=== PATIENT | male | born 1955 | race Caucasian/White ===

== ENCOUNTER 2017-12-20 18:53 | Inpatient (IN) | payer MEDICARE ==
--- NOTE | 2017-12-20 19:21 | ER Document Report ---
ED General <BRADLEY BRITO - Last Filed: 12/20/17 21:35> - General Mode of Arrival: Medic Information source: Patient <BETINA JUAREZ - Last Filed: 12/20/17 21:39> - General Chief Complaint: Suicidal Ideation Stated Complaint: SUICIDAL IDEATION Time Seen by Provider: 12/20/17 19:07 Notes: 62 y.o male with a PMHx of DM for which he takes Lantus and Metformin, HTN, HLD , CAD with stent placement a few years ago and a PSHx of LT rotator cuff surgery and appendectomy. Pt presents to the ED after his sister called the EMS for SI when she found him confused with empty bottles of Robitussin lying next to him. Pt reports trouble sleeping tonight which caused him to take the Robitussin but denies having trouble sleeping prior to tonight. Pt denies any triggers to his trouble sleeping. He denies trying to hurt himself but admits that he realizes that he could have hurt himself by taking the amount of cold and flu medications that he did. Pt denies any hx of HI and denies taking any blood thinners other than Aspirin daily. He reports taking medications for HTN and HLD. 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 He states Dr. Romo is his PCP. Pt is a poor historian, everything asked is answered with a yes or no without elaboration. Pt has no complaints at this time. (LARRYBETINA) - Related Data Allergies/Adverse Reactions: Tetanus Vaccines and Toxoid Allergy (Intermediate, Verified 12/20/17 21:21) Past Medical History - General Information source: Patient - Social History Smoking Status: Unknown if Ever Smoked Cigarette use (# per day): No Frequency of alcohol use: None Occupation: retired Lives with: Alone - Resident of [place], [place]. - Past Medical History Cardiac Medical History: Reports: Hx Coronary Artery Disease - with stent placement, Hx Hypercholesterolemia, Hx Hypertension Endocrine Medical History: Reports: Hx Diabetes Mellitus Type 2 Renal/ Medical History: Denies: Hx Peritoneal Dialysis <LARRYBETINA - Last Filed: 12/20/17 21:39> Review of Systems - Review of Systems Constitutional: No symptoms reported EENT: No symptoms reported Cardiovascular: No symptoms reported Respiratory: No symptoms reported Gastrointestinal: No symptoms reported Genitourinary: No symptoms reported Male Genitourinary: No symptoms reported Musculoskeletal: No symptoms reported Skin: No symptoms reported Hematologic/Lymphatic: No symptoms reported Neurological/Psychological: See HPI, Confusion, Suicidal ideation, Other - trouble sleeping <BETINA JUAREZ - Last Filed: 12/20/17 21:39> Physical Exam <DARYLYAMILETH CastañedaBRADLEY - Last Filed: 12/20/17 21:35> <BETINA JUAREZ - Last Filed: 12/20/17 21:39> - Vital signs Vitals: Resp Pulse Ox 16 97 12/20/17 19:35 12/20/17 19:35 - Notes Notes: Physical Exam: General: Flat affect, everything asked is answered with a yes or no without elaboration. Strong ketone odor on breath. HEENT: Normocephalic. Atraumatic. PERRL. Extraocular movements intact. Oropharynx clear. Mucus membranes dry. Neck: Supple. Non-tender. Chin on chest does not cause a headache. No rigidity. Respiratory: No respiratory distress. Clear and equal breath sounds bilaterally. Cardiovascular: Regular rate and rhythm. Abdominal: Obese. Non-tender, soft. No distension. Normal Bowel Sounds. Back: Non-tender. No deformity or step off. Extremities: Moves all four extremities. No peripheral edema. Upper extremities: Normal inspection. Normal ROM. Lower extremities: Normal inspection. No edema. Normal ROM. Skin: Pale. chronic skin changes to bilateral lower extremities just above the ankles. Neurological: Flat affect, everything asked is answered with a yes or no without elaboration. (BETINA UJAREZ) Course - Laboratory Result Diagrams: 12/20/17 19:42 12/20/17 19:42 - EKG Interpretation by Sd EKG shows normal: Sinus rhythm, Michie, Intervals, QRS Complexes, ST-T Waves Rate: Normal - 72 Rhythm: NSR Michie/QRS: LPHB/LPFB - Consults Dr. Riley Time consulted: 21:20 Consulted provider: will come to ER - Telemetry admit <BRADLEY BRITO - Last Filed: 12/20/17 21:35> - Laboratory Result Diagrams: 12/20/17 19:42 12/20/17 19:42 <BETINA JUAREZ - Last Filed: 12/20/17 21:39> - Re-evaluation Re-evalutation: 12/20/17 21:01 The patient's sister arrived and confirms that he has been depressed and responding in one-word answers for several days. She did find him with several cough and cold preparation bottles around him today. She brought 2 large bottles of cough and cold preparation that includes acetaminophen and eczema for them, and a bottle of Robitussin-DM. The patient's Tylenol level was undetectable, and urine drug screen was negative for PCP. This makes it very unlikely that the Robitussin he reportedly was taking had dextromethorphan minute, and unlikely that he had significant acetaminophen ingestion recently. His BUN is 65 creatinine is 2.27, we have no comparison lab work. His serum CO2 is 17 consistent with his strong ketone odor on his breath. His blood sugar was 123 with an A1c of 9.7. I do not know if this is starvation ketosis and dehydration, or if his sugars have been out of control and he recently administered excessive insulin. He does seem a little encephalopathic at this time. (BRADLEY BRITO) - Vital Signs Vital signs: Temp Pulse Resp BP Pulse Ox 16 134/83 H 99 12/20/17 21:01 12/20/17 21:01 12/20/17 21:01 - Laboratory Laboratory results interpreted by me: 12/20/17 12/20/17 12/20/17 19:42 19:42 19:42 WBC 12.2 H RDW 14.4 H Potassium 5.4 H Carbon Dioxide 17 L Anion Gap 26 H BUN 65 H Creatinine 2.27 H Est GFR ( Amer) 35 L Est GFR (Non-Af Amer) 29 L Glucose 123 H Hemoglobin A1c % 9.7 H Calcium 10.5 H Magnesium 2.5 H Direct Bilirubin 0.6 H Total Protein 9.0 H Urine Protein Urine Ketones Urine Urobilinogen Salicylates < 1.0 L Acetaminophen < 10 L 12/20/17 19:52 WBC RDW Potassium Carbon Dioxide Anion Gap BUN Creatinine Est GFR ( Amer) Est GFR (Non-Af Amer) Glucose Hemoglobin A1c % Calcium Magnesium Direct Bilirubin Total Protein Urine Protein 30 H Urine Ketones 20 H Urine Urobilinogen 2.0 H Salicylates Acetaminophen Critical Care Note - Critical Care Note Total time excluding time spent on procedures (mins): 30 <BRADLEY BRITO - Last Filed: 12/20/17 21:35> Discharge - Discharge Admitting Provider: Hospitalist Unit Admitted: Telemetry <BRADLEY BRITO - Last Filed: 12/20/17 21:35> <BETINA JUAREZ - Last Filed: 12/20/17 21:39> - Discharge Clinical Impression: Suicidal ideation, Dehydration, Acute kidney injury, Metabolic acidosis, Ketoacidosis, Encephalopathy Depression Qualifiers: Depression Type: unspecified Qualified Code(s): F32.9 - Major depressive disorder, single episode, unspecified Diabetes Qualifiers: Diabetes mellitus type: type 2 Diabetes mellitus rodent exterminator insulin use: with rodent exterminator use Diabetes mellitus complication status: with unspecified complications Qualified Code(s): E11.8 - Type 2 diabetes mellitus with unspecified complications Condition: Stable Disposition: ADMITTED INPATIENT Referrals: ONEYDA ROMO MD [Primary Care Provider] - Follow up as needed Scribe Attestation: 12/20/17 21:30 I personally performed the services described in the documentation, reviewed and edited the documentation which was dictated to the scribe in my presence, and it accurately records my words and actions. (BRADLEY BRITO) Scribe Documentation - Scribe Written by Ryan:: Ryan Osborn 12/20/171911 acting as scribe for :: Daryl <BETINA JUAREZ - Last Filed: 12/20/17 21:39>
[2017-12-20 19:57] LABS: ABSOLUTE BASOPHILS # (AUTO) 0.1 10^3/uL (0.0-0.2); ABSOLUTE EOSINOPHILS # (AUTO) 0.3 10^3/uL (0.0-0.6); ABSOLUTE LYMPHOCYTES (AUTO) 3.1 10^3/uL (0.5-4.7); ABSOLUTE MONOCYTES (AUTO) 1.1 10^3/uL (0.1-1.4); ABSOLUTE NEUT (AUTO) 7.6 10^3/uL (1.7-8.2); BASOPHILS % (AUTO) 0.8 % (0-2); EOSINOPHILS % (AUTO) 2.7 % (0-6); HEMATOCRIT 45.5 % (37.9-51.0); LYMPHOCYTES % (AUTO) 25.4 % (13-45); MEAN CORPUSCULAR HEMOGLOBIN 30.3 pg (27.0-33.4); MEAN CORPUSCULAR VOLUME 92 fl (80-97); MONOCYTES % (AUTO) 9.2 % (3-13); PLATELET COUNT 420 10^3/uL (150-450); RED BLOOD COUNT 4.96 10^6/uL (4.35-5.55); RED CELL DISTRIBUTION WIDTH 14.4 % (11.5-14.0); SEGMENTED NEUTROPHILS % (AUTO) 61.9 % (42-78); TOTAL CELLS COUNTED % (AUTO) 100 %; WHITE BLOOD COUNT 12.2 10^3/uL (4.0-10.5)
[2017-12-20 19:59] LABS: INTERNATIONAL RATION (INR) 1.01; PROTHROMBIN TIME 13.8 SEC (11.4-15.4)
[2017-12-20 20:04] LABS: APPEARANCE,URINE SLIGHTLY-CLOUDY; BILIRUBIN,URINE NEGATIVE (NEGATIVE); COLOR,URINE YELLOW; GLUCOSE, URINE NEGATIVE (NEGATIVE); KETONES,URINE 20 mg/dL (NEGATIVE); LEUKOCYTE ESTERASE,URINE NEGATIVE (NEGATIVE); NITRITE,URINE NEGATIVE (NEGATIVE); PROTEIN,URINE 30 mg/dL (NEGATIVE); URINE SPECIFIC GRAVITY 1.014
[2017-12-20 20:19] LABS: URINE AMPHETAMINES SCREEN NEGATIVE; URINE BARBITURATES SCREEN NEGATIVE; URINE BENZODIAZEPINES SCREEN NEGATIVE; URINE COCAINE SCREEN NEGATIVE; URINE MARIJUANA (THC) SCREEN NEGATIVE; URINE METHADONE SCREEN NEGATIVE; URINE PHENCYCLIDINE SCREEN NEGATIVE
[2017-12-20 20:38] LABS: ALANINE AMINOTRANSFERASE 40 U/L (21-72); ALKALINE PHOSPHATASE 106 U/L (38-126); ASPARTATE AMINO TRANSFERASE 29 U/L (17-59); BILIRUBIN,DIRECT 0.6 mg/dL (0.0-0.4); BILIRUBIN,TOTAL 0.6 mg/dL (0.2-1.3); BLOOD UREA NITROGEN 65 mg/dL (7-20); CALCIUM 10.5 mg/dL (8.4-10.2); CREATINE KINASE 94 U/L (55-170); GLUCOSE 123 mg/dL (75-110); POTASSIUM 5.4 mmol/L (3.6-5.0)
[2017-12-20 20:39] LABS: ACETAMINOPHEN < 10 ug/mL (10-30); ALCOHOL < 10 mg/dL (NONE DETECTED); SALICYLATE < 1.0 mg/dL (2.0-20.0)
[2017-12-20 20:45] LABS: ANION GAP 26 (5-19); CARBON DIOXIDE 17 mmol/L (22-30); CHLORIDE 101 mmol/L (98-107); SODIUM 143.9 mmol/L (137-145)
[2017-12-20] MEDS ORDERED: NORMAL SALINE 1000 ML 1,000 ML IV ONE (20:47)
[2017-12-20] MEDS ORDERED: MAG HYDROX/AL HYDROX/SIMETH SUSP 30 ML UDCUP PO PRN (21:23)
[2017-12-20] MEDS ORDERED: ONDANSETRON HCL INJ/PF 4 MG/2 ML SDV IV PRN (21:23)
[2017-12-20] MEDS ORDERED: DEXTROSE 50%-WATER 25 GM/50 ML DISP.SYRIN IV PRN ×2 (21:23)
[2017-12-20] MEDS ORDERED: INSULIN LISPRO 100 UNIT/ML 3 ML VIAL SUBCUT PRN (21:23)
[2017-12-20] MEDS ORDERED: DEXTROSE 40% GEL 15 GM TUBE PO PRN ×2 (21:23)
[2017-12-20] MEDS ORDERED: IPRATROPIUM/ALBUTEROL 0.5-2.5 MG/3 ML AMPUL NEB PRN (21:23)
[2017-12-20] MEDS ORDERED: GLUCAGON,HUMAN RECOMB 1 MG INJ IM PRN (21:23)
[2017-12-20] MEDS ORDERED: ACETAMINOPHEN 325 MG TABLET PO PRN (21:23)
--- NOTE | 2017-12-20 21:40 | RADIOLOGY REPORT (SQ) ---
EXAM DESCRIPTION: CHEST SINGLE VIEW COMPLETED DATE/TIME: 12/20/2017 9:31 pm REASON FOR STUDY: Overdose, dehydration, coronary artery disease COMPARISON: None. EXAM PARAMETERS: NUMBER OF VIEWS: One view. TECHNIQUE: Single frontal radiographic view of the chest acquired. RADIATION DOSE: NA LIMITATIONS: None. FINDINGS: LUNGS AND PLEURA: There is increased opacification in the left base. MEDIASTINUM AND HILAR STRUCTURES: No masses. Contour normal. HEART AND VASCULAR STRUCTURES: Heart normal in size. Normal vasculature. BONES: No acute findings. HARDWARE: None in the chest. OTHER: No other significant finding. IMPRESSION: Opacification the left base laterally. The pleural effusion cannot be excluded. Consol idation cannot be excluded. Mass cannot be excluded. TECHNICAL DOCUMENTATION: JOB ID: [id number] [employer]- All Rights Reserved Reading location - IP/workstation name: [email or web address]
[2017-12-20] MEDS: NORMAL SALINE 1000 ML 1,000 ML IV PRN (21:50)
[2017-12-20] MEDS: HEPARIN SOD (PORCINE) 5,000 UNIT/ML 1 ML SYRINGE SUBCUT SCH (23:26)
[2017-12-20] MEDS: IPRATROPIUM/ALBUTEROL 0.5-2.5 MG/3 ML AMPUL NEB SCH (23:36)
[2017-12-21 00:30] LABS: BLOOD UREA NITROGEN 61 mg/dL (7-20); CALCIUM 9.8 mg/dL (8.4-10.2); GLUCOSE 108 mg/dL (75-110); POTASSIUM 5.2 mmol/L (3.6-5.0)
[2017-12-21 00:35] LABS: CARBON DIOXIDE 17 mmol/L (22-30); CHLORIDE 105 mmol/L (98-107); SODIUM 144.9 mmol/L (137-145)
[2017-12-21 00:41] LABS: ANION GAP 23 (5-19)
[2017-12-21] MEDS: NORMAL SALINE 1000 ML 1,000 ML IV PRN ×2 (03:45→09:18)
--- NOTE | 2017-12-21 05:51 | PDOC H&P ---
History of Present Illness Admission Date/PCP: 12/20/17 21:38 ONEYDA VARELA MD Patient complains of: Confusion History of Present Illness: KEZIA IVERSON is a 62 year old male with a history of depression, diabetes, hypertension, dyslipidemia, coronary artery disease with stenting. He presents to the emergency room after his sister discovers him confused with empty bottles of Robitussin and NyQuil. Patient complains of insomnia denies suicidal ideation, confusion, weakness or difficulty with speech. Patient's sister describes confabulation regarding compliance of lifestyle and home medication. Patient denies history of suicide attempt or current homicidal ideation. Patient appears upset with his sister. In the emergency room he is found to have hyperkalemia 5.4, metabolic acidosis and acute renal failure with prerenal azotemia and a negative urine tox screen. He is IVCed and referred to the hospitalist for admission. Past Medical History Cardiac Medical History: Reports: Coronary Artery Disease - with stent placement , Hyperlipidema, Hypertension Pulmonary Medical History: Reports: None EENT Medical History: Reports: None Neurological Medical History: Reports: None Endocrine Medical History: Reports: Diabetes Mellitus Type 2 Renal/ Medical History: Reports: None Malignancy Medical History: Reports: None GI Medical History: Reports: None Musculoskeltal Medical History: Reports: None Skin Medical History: Reports: None Psychiatric Medical History: Reports: Depression Traumatic Medical History: Reports: None Hematology: Reports: None Infectious Medical History: Reports: None Past Surgical History Past Surgical History: Reports: Appendectomy, Coronary Stent, Orthopedic Surgery - L shoulder Social History Information Source: Patient Lives with: Alone - Resident of [place], [place]. Smoking Status: Unknown if Ever Smoked Frequency of Alcohol Use: None Hx Recreational Drug Use: No Drugs: None Hx Prescription Drug Abuse: No - Advance Directive Resuscitation Status: Full Code Family History Family History: Hypertension Parental Family History Reviewed: Yes Children Family History Reviewed: Yes Sibling(s) Family History Reviewed.: Yes Medication/Allergy Allergies/Adverse Reactions: Tetanus Vaccines and Toxoid Allergy (Intermediate, Verified 12/20/17 21:21) Review of Systems ROS unobtainable: Due to mental status - Patient felt unreliable historian given contradictory lab findings and his sisters account of history Physical Exam Vital Signs: Temp Pulse Resp BP Pulse Ox 97.9 F 68 18 123/69 100 12/21/17 03:13 12/21/17 03:13 12/21/17 03:13 12/21/17 03:13 12/21/17 03:13 Intake & Output 12/19/17 12/20/17 12/21/17 11:59 11:59 11:59 Weight 106.5 kg General appearance: PRESENT: no acute distress, cooperative, disheveled, mild distress Head exam: PRESENT: atraumatic, normocephalic Eye exam: PRESENT: conjunctiva pink, EOMI, PERRLA. ABSENT: scleral icterus Ear exam: PRESENT: normal external ear exam Mouth exam: PRESENT: dry mucosa, neck supple. ABSENT: laceration, moist Neck exam: ABSENT: carotid bruit, JVD, lymphadenopathy, thyromegaly Respiratory exam: PRESENT: clear to auscultation marco. ABSENT: rales, rhonchi, wheezes Cardiovascular exam: PRESENT: RRR. ABSENT: diastolic murmur, rubs, systolic murmur Pulses: PRESENT: normal dorsalis pedis pul Vascular exam: PRESENT: normal capillary refill GI/Abdominal exam: PRESENT: normal bowel sounds, soft. ABSENT: distended, guarding, mass, organolmegaly, rebound, tenderness Rectal exam: PRESENT: deferred Extremities exam: PRESENT: full ROM. ABSENT: calf tenderness, clubbing, pedal edema Neurological exam: PRESENT: alert, awake, oriented to person, oriented to place , oriented to time, oriented to situation, CN II-XII grossly intact. ABSENT: motor sensory deficit Psychiatric exam: PRESENT: flat affect, unusual affect Skin exam: PRESENT: dry, intact, warm. ABSENT: cyanosis, rash Results Laboratory Results: 12/21/17 00:05 12/21/17 00:05 Sodium 144.9 Potassium 5.2 H Chloride 105 Carbon Dioxide 17 L Anion Gap 23 H BUN 61 H Creatinine 1.99 H Est GFR ( Amer) 41 L Est GFR (Non-Af Amer) 34 L Glucose 108 Calcium 9.8 Impressions: Chest X-Ray 12/20/17 21:04 IMPRESSION: Opacification the left base laterally. The pleural effusion cannot be excluded. Consolidation cannot be excluded. Mass cannot be excluded. Assessment & Plan - Diagnosis (1) Acute kidney injury Is this a current diagnosis for this admission?: Yes Plan: Likely secondary to dehydration and prerenal azotemia, IV fluid challenge follow -up chemistry (2) Dehydration Is this a current diagnosis for this admission?: Yes Plan: IV fluid challenge, encourage p.o. intake, follow-up chemistry (3) Depression Qualifiers: Depression Type: unspecified Qualified Code(s): F32.9 - Major depressive disorder, single episode, unspecified Is this a current diagnosis for this admission?: Yes Plan: Unclear history, IVCed obtain mental health consult, supportive care with suicide precaution (4) Diabetes Qualifiers: Diabetes mellitus type: type 2 Diabetes mellitus retirement insulin use: with terminal block assembler use Diabetes mellitus complication status: with unspecified complications Qualified Code(s): E11.8 - Type 2 diabetes mellitus with unspecified complications; Z79.4 - correction (current) use of insulin; Z79.4 - terminal operator (current) use of insulin; Z79.4 - terminal operator (current) use of insulin; Z79.4 - correction (current) use of insulin Is this a current diagnosis for this admission?: Yes Plan: Obtain medication reconciliation, avoid metformin, Humalog sliding scale (5) Metabolic acidosis Is this a current diagnosis for this admission?: Yes Plan: Secondary to starvation versus metformin, IV fluid challenge, diabetic diet, follow-up chemistry. - Time Time Spent: 50 to 70 Minutes - Inpatient Certification Medical Necessity: Need Close Monitoring Due to Risk of Patient Decompensation
[2017-12-21 06:15] LABS: ABSOLUTE EOSINOPHILS # (AUTO) 0.2 10^3/uL (0.0-0.6); ABSOLUTE LYMPHOCYTES (AUTO) 2.2 10^3/uL (0.5-4.7); ABSOLUTE MONOCYTES (AUTO) 0.9 10^3/uL (0.1-1.4); ABSOLUTE NEUT (AUTO) 6.1 10^3/uL (1.7-8.2); BASOPHILS % (AUTO) 0.4 % (0-2); EOSINOPHILS % (AUTO) 2.6 % (0-6); HEMATOCRIT 42.5 % (37.9-51.0); HEMOGLOBIN 14.1 g/dL (13.5-17.0); LYMPHOCYTES % (AUTO) 23.4 % (13-45); MEAN CORPUSCULAR HEMOGLOBIN 30.5 pg (27.0-33.4); MEAN CORPUSCULAR HGB CONC 33.3 g/dL (32.0-36.0); MEAN CORPUSCULAR VOLUME 92 fl (80-97); MONOCYTES % (AUTO) 9.1 % (3-13); PLATELET COUNT 337 10^3/uL (150-450); RED BLOOD COUNT 4.64 10^6/uL (4.35-5.55); RED CELL DISTRIBUTION WIDTH 14.3 % (11.5-14.0); SEGMENTED NEUTROPHILS % (AUTO) 64.5 % (42-78); TOTAL CELLS COUNTED % (AUTO) 100 %; WHITE BLOOD COUNT 9.5 10^3/uL (4.0-10.5)
[2017-12-21 06:27] LABS: BLOOD UREA NITROGEN 58 mg/dL (7-20); CALCIUM 10.1 mg/dL (8.4-10.2); CARBON DIOXIDE 19 mmol/L (22-30); GLUCOSE 123 mg/dL (75-110)
[2017-12-21 06:32] LABS: CHLORIDE 107 mmol/L (98-107); SODIUM 150.6 mmol/L (137-145)
[2017-12-21 06:38] LABS: ANION GAP 25 (5-19)
[2017-12-21 06:40] LABS: POTASSIUM 6.1 mmol/L (3.6-5.0)
--- NOTE | 2017-12-21 07:45 | EKG REPORT ---
SEVERITY:- ABNORMAL ECG - SINUS RHYTHM LEFT POSTERIOR FASCICULAR BLOCK : Confirmed by: Triston Tomlinson MD 21-Dec-2017 07:44:44
[2017-12-21] MEDS: IPRATROPIUM/ALBUTEROL 0.5-2.5 MG/3 ML AMPUL NEB SCH (08:37)
[2017-12-21] MEDS: DOCUSATE SODIUM 100 MG CAPSULE PO SCH ×2 (09:18→17:24)
[2017-12-21] MEDS: HEPARIN SOD (PORCINE) 5,000 UNIT/ML 1 ML SYRINGE SUBCUT SCH ×3 (09:18→21:19)
[2017-12-21] MEDS ORDERED: DEXTROSE 50%-WATER 25 GM/50 ML DISP.SYRIN IV ONE (09:35)
[2017-12-21] MEDS ORDERED: INSULIN REG, HUMAN 100 UNIT/ML 3 ML VIAL (PYX) IV ONE (09:36)
[2017-12-21] MEDS ORDERED: CALCIUM CHLORIDE 10% PF/INJ 1000 MG/10 ML SDV IV STA (09:38)
[2017-12-21] MEDS ORDERED: NORMAL SALINE 1000 ML 1,000 ML IV PRN (09:40)
[2017-12-21 10:09] LABS: ALANINE AMINOTRANSFERASE 37 U/L (21-72); ALBUMIN 4.5 g/dL (3.5-5.0); ALKALINE PHOSPHATASE 92 U/L (38-126); ASPARTATE AMINO TRANSFERASE 23 U/L (17-59); BILIRUBIN,DIRECT 0.5 mg/dL (0.0-0.4); BILIRUBIN,TOTAL 0.5 mg/dL (0.2-1.3); TOTAL PROTEIN 7.7 g/dL (6.3-8.2)
[2017-12-21 10:11] LABS: ACETAMINOPHEN < 10 ug/mL (10-30); SALICYLATE < 1.0 mg/dL (2.0-20.0)
[2017-12-21] MEDS ORDERED: CALCIUM GLUCONATE 2,222 MG in DEXTROSE 5%-WATER 100 ML IV ONE (10:30)
[2017-12-21 10:43] LABS: INTERNATIONAL RATION (INR) 1.03
[2017-12-21] MEDS ORDERED: DEXTROSE 5%-1/2 NORMAL SALINE 1,000 ML IV PRN (10:47)
[2017-12-21] MEDS: ALBUTEROL SULFATE 0.083% NEB 2.5 MG/3 ML AMPUL NEB SCH ×4 (12:14→23:22)
[2017-12-21 13:15] LABS: ARTERIAL BLOOD BASE EXCESS -8.2 mmol/L; ARTERIAL BLOOD FIO2 ROOM AIR; ARTERIAL BLOOD HCO3 17.5 mmol/L (20-26); ARTERIAL BLOOD PCO2 36.7 mmHg (35-45); ARTERIAL BLOOD PO2 88.9 mmHg (80-100); ARTERIAL BLOOD TOTAL CO2 18.6 mmol/L (23-27)
[2017-12-21 13:18] LABS: BLOOD UREA NITROGEN 46 mg/dL (7-20); CALCIUM 10.4 mg/dL (8.4-10.2); CARBON DIOXIDE 19 mmol/L (22-30); CHLORIDE 104 mmol/L (98-107); GLUCOSE 191 mg/dL (75-110); SODIUM 145.7 mmol/L (137-145)
[2017-12-21 13:28] LABS: ANION GAP 22 (5-19)
[2017-12-21] MEDS ORDERED: GLUCAGON,HUMAN RECOMB 1 MG INJ IM PRN (13:42)
[2017-12-21] MEDS ORDERED: DEXTROSE 50%-WATER 25 GM/50 ML DISP.SYRIN IV PRN ×2 (13:42)
[2017-12-21] MEDS ORDERED: DEXTROSE 40% GEL 15 GM TUBE PO PRN ×2 (13:42)
--- NOTE | 2017-12-21 13:57 | PDOC PROGRESS REPORT ---
Subjective Progress Note for:: 12/21/17 Reason For Visit: ARF/MET ACIDOSIS/SUICIDE IDEATION Physical Exam Vital Signs: Temp Pulse Resp BP Pulse Ox 97.7 F 70 14 136/76 H 100 12/21/17 07:58 12/21/17 07:58 12/21/17 07:58 12/21/17 07:58 12/21/17 07:58 Intake & Output 12/20/17 12/21/17 12/22/17 06:59 06:59 06:59 Intake Total 872 Balance 872 Weight 106.3 kg Results Laboratory Results: 12/21/17 05:54 12/21/17 05:54 12/21/17 12/21/17 12/21/17 00:05 05:54 05:54 WBC 9.5 RBC 4.64 Hgb 14.1 Hct 42.5 MCV 92 MCH 30.5 MCHC 33.3 RDW 14.3 H Plt Count 337 Seg Neutrophils % 64.5 Lymphocytes % 23.4 Monocytes % 9.1 Eosinophils % 2.6 Basophils % 0.4 Absolute Neutrophils 6.1 Absolute Lymphocytes 2.2 Absolute Monocytes 0.9 Absolute Eosinophils 0.2 Absolute Basophils 0.0 Sodium 144.9 150.6 H Potassium 5.2 H 6.1 H* Chloride 105 107 Carbon Dioxide 17 L 19 L Anion Gap 23 H 25 H BUN 61 H 58 H Creatinine 1.99 H 1.88 H Est GFR ( Amer) 41 L 44 L Est GFR (Non-Af Amer) 34 L 36 L Glucose 108 123 H Calcium 9.8 10.1 Impressions: Chest X-Ray 12/20/17 21:04 IMPRESSION: Opacification the left base laterally. The pleural effusion cannot be excluded. Consolidation cannot be excluded. Mass cannot be excluded. Assessment & Plan - Diagnosis (1) DKA (diabetic ketoacidoses) Qualifiers: Diabetes mellitus type: type 2 Diabetes mellitus complication detail: without coma Qualified Code(s): E11.10 - Type 2 diabetes mellitus with ketoacidosis without coma Is this a current diagnosis for this admission?: Yes Plan: Continue hydration, start Lantus, pre-meal Humalog and continue Humalog sliding scale before meals and at bedtime (2) Acute kidney injury Is this a current diagnosis for this admission?: Yes (3) Hyperkalemia Is this a current diagnosis for this admission?: Yes Plan: BMP still pending and we will follow-up to see if any further intervention (4) Metabolic acidosis Is this a current diagnosis for this admission?: Yes Plan: Will abuse to be due to ketoacidosis. To order beta hydroxy butyrate (5) Suicidal ideation Is this a current diagnosis for this admission?: Yes Plan: Patient IVCed. Psychiatry consult pending consult (6) Depression Qualifiers: Depression Type: unspecified Qualified Code(s): F32.9 - Major depressive disorder, single episode, unspecified Is this a current diagnosis for this admission?: Yes Plan: Restart Lopressor (7) HTN (hypertension) Qualifiers: Hypertension type: essential hypertension Qualified Code(s): I10 - Essential (primary) hypertension Is this a current diagnosis for this admission?: Yes Plan: Start Norvasc. She is diabetic will benefit from lisinopril but not at the present time - Time Time Spent with patient: 15-24 minutes Medications reviewed and adjusted accordingly: Yes Anticipated discharge: Other - Undetermined at this time - Inpatient Certification Based on my medical assessment, after consideration of the patient's comorbidities, presenting symptoms, or acuity I expect that the services needed warrant INPATIENT care.: Yes I certify that my determination is in accordance with my understanding of Medicare's requirements for reasonable and necessary INPATIENT services [42 CFR 412.3e].: Yes Medical Necessity: Significant Comorbidiites Make Outpatient Treatment Too Risky , Need Close Monitoring Due to Risk of Patient Decompensation, Need For IV Fluids, Need For Continuous Telemetry Monitoring
[2017-12-21 13:59] LABS: POTASSIUM 5.1 mmol/L (3.6-5.0)
[2017-12-21] MEDS: 1/2 NORMAL SALINE 1,000 ML IV PRN (14:44)
[2017-12-21] MEDS: AMLODIPINE BESYLATE 5 MG TABLET PO SCH (14:44)
--- NOTE | 2017-12-21 16:49 | Physician Advisory Note ---
Physician Advisor ProgressNote .: Pursuant to the plan for [facility], I have reviewed the medical record for this patient. Physician Advisor Statement: Please consider documenting, if you agree: 1. "Acute hypernatremia, suspect due to " [intravascular volume depletion from ...?] Thanks! CK
[2017-12-21] MEDS: INSULIN LISPRO 100 UNIT/ML 3 ML VIAL SUBCUT SCH (17:23)
[2017-12-21] MEDS: INSULIN LISPRO 100 UNIT/ML 3 ML VIAL SUBCUT PRN (17:24)
[2017-12-21 19:01] LABS: BLOOD UREA NITROGEN 47 mg/dL (7-20); CALCIUM 10.1 mg/dL (8.4-10.2); GLUCOSE 156 mg/dL (75-110); POTASSIUM 5.6 mmol/L (3.6-5.0)
[2017-12-21 19:10] LABS: ANION GAP 22 (5-19); CARBON DIOXIDE 19 mmol/L (22-30); CHLORIDE 103 mmol/L (98-107); SODIUM 144.2 mmol/L (137-145)
[2017-12-21] MEDS ORDERED: INSULIN GLARGINE,HUM.REC.ANLOG 300 UNIT/3 ML INSULN.PEN SUBCUT SCH (22:00)
[2017-12-21] MEDS: INSULIN GLARGINE,HUM.REC.ANLOG 300 UNIT/3 ML INSULN.PEN SUBCUT SCH (23:40)
[2017-12-22] MEDS: INSULIN LISPRO 100 UNIT/ML 3 ML VIAL SUBCUT PRN ×4 (00:01→17:41)
[2017-12-22] MEDS: 1/2 NORMAL SALINE 1,000 ML IV PRN (00:36)
[2017-12-22] MEDS: ALBUTEROL SULFATE 0.083% NEB 2.5 MG/3 ML AMPUL NEB SCH ×2 (03:03→08:09)
[2017-12-22 06:41] LABS: ABSOLUTE EOSINOPHILS # (AUTO) 0.3 10^3/uL (0.0-0.6); ABSOLUTE LYMPHOCYTES (AUTO) 2.2 10^3/uL (0.5-4.7); ABSOLUTE MONOCYTES (AUTO) 0.9 10^3/uL (0.1-1.4); ABSOLUTE NEUT (AUTO) 4.7 10^3/uL (1.7-8.2); BASOPHILS % (AUTO) 0.5 % (0-2); EOSINOPHILS % (AUTO) 3.6 % (0-6); HEMATOCRIT 38.2 % (37.9-51.0); HEMOGLOBIN 12.6 g/dL (13.5-17.0); LYMPHOCYTES % (AUTO) 27.3 % (13-45); MEAN CORPUSCULAR HEMOGLOBIN 29.6 pg (27.0-33.4); MEAN CORPUSCULAR HGB CONC 32.9 g/dL (32.0-36.0); MEAN CORPUSCULAR VOLUME 90 fl (80-97); MONOCYTES % (AUTO) 11.2 % (3-13); PLATELET COUNT 292 10^3/uL (150-450); RED BLOOD COUNT 4.25 10^6/uL (4.35-5.55); RED CELL DISTRIBUTION WIDTH 14.3 % (11.5-14.0); SEGMENTED NEUTROPHILS % (AUTO) 57.4 % (42-78); TOTAL CELLS COUNTED % (AUTO) 100 %; WHITE BLOOD COUNT 8.2 10^3/uL (4.0-10.5)
[2017-12-22] MEDS: INSULIN LISPRO 100 UNIT/ML 3 ML VIAL SUBCUT SCH ×3 (07:51→17:41)
[2017-12-22] MEDS: HEPARIN SOD (PORCINE) 5,000 UNIT/ML 1 ML SYRINGE SUBCUT SCH ×3 (07:51→22:10)
[2017-12-22 09:16] LABS: ANION GAP 17 (5-19); BLOOD UREA NITROGEN 39 mg/dL (7-20); CALCIUM 9.8 mg/dL (8.4-10.2); CARBON DIOXIDE 20 mmol/L (22-30); CHLORIDE 106 mmol/L (98-107); GLUCOSE 187 mg/dL (75-110); SODIUM 143.2 mmol/L (137-145)
[2017-12-22] MEDS ORDERED: IPRATROPIUM/ALBUTEROL 0.5-2.5 MG/3 ML AMPUL NEB PRN (09:21)
[2017-12-22 09:25] LABS: POTASSIUM 4.5 mmol/L (3.6-5.0)
[2017-12-22] MEDS: LANSOPRAZOLE 30 MG TAB.RAP.DR PO SCH (09:45)
[2017-12-22] MEDS: CITALOPRAM HYDROBROMIDE 20 MG TABLET PO SCH (09:45)
[2017-12-22] MEDS: DOCUSATE SODIUM 100 MG CAPSULE PO SCH ×2 (09:45→17:41)
[2017-12-22] MEDS: INSULIN GLARGINE,HUM.REC.ANLOG 300 UNIT/3 ML INSULN.PEN SUBCUT SCH ×2 (09:45→22:12)
[2017-12-22] MEDS ORDERED: ALBUTEROL SULFATE 0.083% NEB 2.5 MG/3 ML AMPUL NEB PRN (10:00)
[2017-12-22] MEDS: AMLODIPINE BESYLATE 5 MG TABLET PO SCH (13:22)
[2017-12-23] MEDS: HEPARIN SOD (PORCINE) 5,000 UNIT/ML 1 ML SYRINGE SUBCUT SCH (05:21)
[2017-12-23 07:14] LABS: ANION GAP 15 (5-19); BLOOD UREA NITROGEN 25 mg/dL (7-20); CALCIUM 10.1 mg/dL (8.4-10.2); CARBON DIOXIDE 26 mmol/L (22-30); CHLORIDE 106 mmol/L (98-107); GLUCOSE 123 mg/dL (75-110); PHOSPHORUS 3.5 mg/dL (2.5-4.5); POTASSIUM 4.3 mmol/L (3.6-5.0); SODIUM 146.7 mmol/L (137-145)
--- NOTE | 2017-12-23 07:26 | PDOC PROGRESS REPORT ---
Subjective Progress Note for:: 12/22/17 Subjective:: 62-year-old gentleman with past medical history of Insulin-dependent diabetes Hypertension Hyperlipidemia Depression Coronary artery disease with stenting. He presented to the emergency room on December 20 after his sister discovered him confused with empty bottles of Robitussin and NyQuil. There was some concern for possible suicide attempt, and he was involuntarily committed. In the emergency room he was found to have hyperkalemia with a potassium of 5.4 , metabolic acidosis and acute renal failure with prerenal azotemia. Urine tox screen was negative. Tylenol and salicylate level were negative. Reason For Visit: ARF/MET ACIDOSIS/SUICIDE IDEATION Physical Exam Vital Signs: Temp Pulse Resp BP Pulse Ox 98.1 F 66 20 146/77 H 97 12/23/17 03:25 12/23/17 03:25 12/23/17 03:25 12/23/17 03:25 12/23/17 03:25 Intake & Output 12/22/17 12/23/17 12/24/17 06:59 06:59 06:59 Intake Total 3900 1325 Output Total 950 3200 Balance 2950 -1875 Weight 106.6 kg 105.6 kg General appearance: PRESENT: no acute distress Head exam: PRESENT: normocephalic Mouth exam: PRESENT: moist Neck exam: ABSENT: tracheal deviation Respiratory exam: PRESENT: symmetrical, unlabored GI/Abdominal exam: PRESENT: normal bowel sounds, soft. ABSENT: tenderness Rectal exam: PRESENT: deferred Extremities exam: ABSENT: pedal edema Neurological exam: PRESENT: alert, awake, oriented to person, oriented to place Skin exam: ABSENT: petechiae Results Laboratory Results: 12/22/17 05:40 12/22/17 12/22/17 05:40 05:40 Sodium 143.2 Potassium 4.5 D Chloride 106 Carbon Dioxide 20 L Anion Gap 17 BUN 39 H Creatinine 1.30 H Est GFR ( Amer) > 60 Est GFR (Non-Af Amer) 56 L Glucose 187 H Calcium 9.8 Phosphorus 3.8 Impressions: Chest X-Ray 12/20/17 21:04 IMPRESSION: Opacification the left base laterally. The pleural effusion cannot be excluded. Consolidation cannot be excluded. Mass cannot be excluded. Assessment & Plan - Diagnosis (1) Acute kidney injury Is this a current diagnosis for this admission?: Yes Plan: Resolved with IV fluids. Avoid nephrotoxic agents (2) Diabetes 1.5, managed as type 2 Is this a current diagnosis for this admission?: Yes Plan: Insulin sliding scale and Lantus. (3) Dehydration Is this a current diagnosis for this admission?: Yes Plan: Improved with IV fluids. Will discontinue (4) Depression Qualifiers: Depression Type: unspecified Qualified Code(s): F32.9 - Major depressive disorder, single episode, unspecified Is this a current diagnosis for this admission?: Yes Plan: On Celexa. Psych evaluation for suspicion of possible suicide attempt (5) Hyperkalemia Is this a current diagnosis for this admission?: Yes Plan: Resolved (6) Metabolic acidosis Is this a current diagnosis for this admission?: Yes Plan: Resolved - Time Time Spent with patient: 35 or more minutes
[2017-12-23] MEDS: LANSOPRAZOLE 30 MG TAB.RAP.DR PO SCH (10:31)
[2017-12-23] MEDS: CITALOPRAM HYDROBROMIDE 20 MG TABLET PO SCH (10:31)
[2017-12-23] MEDS: DOCUSATE SODIUM 100 MG CAPSULE PO SCH (10:31)
[2017-12-23] MEDS: INSULIN GLARGINE,HUM.REC.ANLOG 300 UNIT/3 ML INSULN.PEN SUBCUT SCH (10:32)
[2017-12-23] MEDS: INSULIN LISPRO 100 UNIT/ML 3 ML VIAL SUBCUT SCH ×2 (10:32→14:38)
[2017-12-23 11:44] VITALS: BP 122/74
--- NOTE | 2017-12-23 12:47 | PSYCHOLOGICAL NOTE ---
Psych Note - Psych Note Psych Note: Reason for consult: IVC Contact Permissions: Patient's sister Blaire Drummond [phone] Eval: [id number] Final Disposition 12:30 pm Patient is a 62-year-old male. Patient reports that he was taking Robitussin to sleep. Patient reports that the final day that he took Robitussin before ending up at the hospital he took more than he usually does so that he could "hallucinate" and feel "high". Patient reports that he did not actually hallucinate and just ended up sleeping and was feeling confused until just recently. Patient reports that he currently is not feeling like himself but he is feeling a lot better than when he first arrived. Patient reports that he has a good social support system with his neighbors. Patient reports that he sees Dr. Lopez and is prescribed Celexa 40 mg daily that he has taken for approximately a year. Patient reports that mental health has permission to speak with his sister Blaire stating she is able to provide more information as he is still not feeling well. Patient reports he was not managing his diabetes. Patient reports he has spent most of his day watching television and is currently enjoying watching [employer]. Patient reports he does not have any history of inpatient psychiatric hospital stays, outpatient therapy, or any mental health diagnosis aside from last years depression diagnosis from his primary care provider and not a psychiatrist. Collateral information: Patient's sister Blaire Drummond Patient's sister reports patient is usually a very talkative person and "can go on and on". Patient's sister reports that patient has never had an official diagnosis of depression until he told his primary care provider about it. Patient's sister reports that the patient told her he thought his antidepressant was not working. Patient's sister reports that she has concerns because his trailer was dirty and he had not been taking care of his dog. Patient's sister reports the dog was covered in fleas and was very skinny indicating that he had not been feeding her or taken her to the [facility] in 2 years. Patient's sister reports that patient had not been eating for 3-4 days per his report to her. Patient's sister reports that she believes he was catatonic for those days because he had not been able to sleep so she believes that he took the Robitussin to be able to sleep because he was having that difficulty. Patient's sister reports that she feels patient is depressed and needs help mentally whether or not that is changing his medications. Patient's sister reports that he gets bad dreams when he sleeps and also is on a CPAP machine that he does not use so that could be why he is not sleeping. Patient's sister reports that he has no history of substance abuse and his blood showed no signs of him taking too much Robitussin. Patient's sister reports that she believes he just said that because he did not clean up the empty bottles of Robitussin. Patient's sister reports that there are days where patient does not leave his trailer or go anywhere or talk to others. Patient's sister reports that there are other days where he talks to everyone. Patient's sister reports that historically patient is a bad diabetic and does not exercise. Diagnosis: 311 (F32.9) Unspecified depressive disorder Impression/Plan: Recommendation to rescind involuntary commitment due to patient not meeting criteria [place] GS 122C. Patient is psychiatrically cleared for discharge. Patient denied SI/HI. Clinician observed patient is currently watching television, enjoying his stay at [facility] ( per his report) and is not endorsing any suicidal ideation. Clinician provided education on depression to patient and recommended patient seek an assessment from a psychiatric provider, clinician provided resource to patient. Attending hospitalist in agreement with disposition and plan. Consulted with Dr. Caballero regarding the management and care of patient.
[2017-12-23] MEDS ORDERED: MAGNESIUM OXIDE 400 MG TABLET PO ONE (14:00)
[2017-12-23] MEDS: AMLODIPINE BESYLATE 5 MG TABLET PO SCH (14:39)
--- NOTE | 2017-12-23 16:21 | PDOC DISCHARGE SUMMARY ---
General - Admit/Disc Date/PCP Admission Date/Primary Care Provider: 12/20/17 21:38 ONEYDA VARELA MD Discharge Date: 12/23/17 - Discharge Diagnosis (1) Acute kidney injury Is this a current diagnosis for this admission?: Yes (2) Diabetes 1.5, managed as type 2 Is this a current diagnosis for this admission?: Yes (3) Dehydration Is this a current diagnosis for this admission?: Yes (4) Depression Is this a current diagnosis for this admission?: Yes (5) Hyperkalemia Is this a current diagnosis for this admission?: Yes (6) Metabolic acidosis Is this a current diagnosis for this admission?: Yes - Additional Information Resuscitation Status: Full Code Discharge Activity: Activity As Tolerated Home Medications: Citalopram Hydrobromide [Celexa] 40 mg PO DAILY 12/21/17 Insulin Glargine,Hum.rec.anlog [Lantus Solostar] 50 unit SQ BID 12/21/17 Metformin HCl [Glucophage 500 mg Tablet] 1,000 mg PO BID 12/21/17 Omeprazole 40 mg PO DAILY 12/21/17 Amlodipine Besylate [Norvasc 5 mg Tablet] 5 mg PO DAILY@1400 #0 tablet 12/23/17 Magnesium Oxide [Mag-Ox 400 mg Tablet] 400 mg PO DAILY tablet 12/23/17 History of Present Illness History of Present Illness: 62-year-old gentleman with past medical history of Insulin-dependent diabetes Hypertension Hyperlipidemia Depression Coronary artery disease with stenting. He presented to the emergency room on December 20 after his sister discovered him confused with empty bottles of Robitussin and NyQuil on his bed There was some concern for possible suicide attempt, and he was involuntarily committed. In the emergency room he was found to have hyperkalemia with a potassium of 5.4 , metabolic acidosis and acute renal failure with prerenal azotemia. Urine tox screen was negative. Tylenol and salicylate level were negative. His blood sugars were elevated on admission and he was treated with IV fluids and Lantus. Renal function has normalized. He denies any suicidal ideation or intention. He does admit to being depressed due to loneliness and due to his medical issues. The patient was seen by the psychiatry service and cleared for discharge home. I gave him a prescription for amlodipine 5 mg daily 30 pills, Celexa 40 mg daily 30 pills and aspirin 81 mg daily 30 pills. He is doing well. He ambulated with physical therapy. He is stable for discharge home. He is to follow-up with his primary care physician in 1 week and see psychiatry as an outpatient. Hospital Course Hospital Course: above Physical Exam Vital Signs: Temp Pulse Resp BP Pulse Ox 98.1 F 81 18 122/74 99 12/23/17 11:19 12/23/17 14:00 12/23/17 11:19 12/23/17 11:19 12/23/17 11:19 Intake & Output 12/22/17 12/23/17 12/24/17 06:59 06:59 06:59 Intake Total 3900 1325 150 Output Total 950 3200 1100 Balance 2950 -1875 -950 Weight 106.6 kg 105.6 kg General appearance: PRESENT: no acute distress Respiratory exam: PRESENT: symmetrical, unlabored Cardiovascular exam: PRESENT: RRR GI/Abdominal exam: PRESENT: soft Neurological exam: PRESENT: alert, awake, oriented to person, oriented to place Psychiatric exam: PRESENT: appropriate affect Results Laboratory Results: 12/22/17 05:40 12/23/17 05:58 12/23/17 05:58 Sodium 146.7 H Potassium 4.3 Chloride 106 Carbon Dioxide 26 Anion Gap 15 BUN 25 H Creatinine 1.13 Est GFR ( Amer) > 60 Est GFR (Non-Af Amer) > 60 Glucose 123 H Calcium 10.1 Phosphorus 3.5 Magnesium 1.8 Impressions: Chest X-Ray 12/20/17 21:04 IMPRESSION: Opacification the left base laterally. The pleural effusion cannot be excluded. Consolidation cannot be excluded. Mass cannot be excluded. Qualifiers - * PATIENT BEING DISCHARGED WITH ANY OF THE FOLLOWING DIAGNOSIS: No Plan Time Spent: Greater than 30 Minutes
[2017-12-23] MEDS ORDERED: METFORMIN HCL 500 MG TABLET PO SCH (18:00)
[2017-12-24] MEDS ORDERED: MAGNESIUM OXIDE 400 MG TABLET PO SCH (10:00)
== END 2017-12-23 17:06 | disposition home or self-care (01) | DRG 682 ==
LOC: ER 18:53 → EH 21:38 → 3S 12-21 00:47
PROVIDERS: ADMIT Internal Medicine; ATTEND Internal Medicine
DX: N17.9 Acute kidney failure, unspecified (principal); E11.10 Type 2 diabetes mellitus with ketoacidosis without coma; E87.5 Hyperkalemia; E86.0 Dehydration; I25.10 Atherosclerotic heart disease of native coronary artery without angina pectoris; E11.65 Type 2 diabetes mellitus with hyperglycemia; E78.5 Hyperlipidemia, unspecified; I10 Essential (primary) hypertension; F32.9 Major depressive disorder, single episode, unspecified; Z79.4 Long term (current) use of insulin; Z95.5 Presence of coronary angioplasty implant and graft; Z90.49 Acquired absence of other specified parts of digestive tract; Z88.7 Allergy status to serum and vaccine
CPT/HCPCS: 36415; 71045; 80048; 80053; 80076; 80307; 81001; 82010; 82550; 82803; 82962; 83036; 83735; 84100; 84443; 84484; 85025; 85610; 93005; 93010; 94640; 96360; 99291; G8978-GP; G8979-GP; G8980-GP; J0610; J1644; J1815; J3490; J7030; J7620

== ENCOUNTER 2018-06-07 08:56 | Day surgery (SDC) | payer MEDICARE ==
[~2018-06-07 08:56] MED LIST: BACITRACIN INJ 50,000 UNIT VIAL ONE; BUPIVACAINE HCL 0.5 % INJ/PF 30 ML SDV ONE; CEFAZOLIN 1 GM/D5W RTU 1 GM/50 ML RTUPB IV PRN; LIDOCAINE 2% INJ (20 MG/ML) 20 ML MDV ONE; NORMAL SALINE INJ/PF 0.9% 10 ML SDV ONE; POLYMYXIN B SULFATE INJ 500000 UNIT VIAL ONE
[2018-06-07] MEDS ORDERED: PROPOFOL INJ 200 MG/20 ML VIAL IV ONE (09:17)
[2018-06-07] MEDS ORDERED: FENTANYL CITRATE INJ/PF 100 MCG/2 ML AMPUL ONE (09:17)
[2018-06-07] MEDS ORDERED: ONDANSETRON HCL INJ/PF 4 MG/2 ML SDV ONE (09:17)
[2018-06-07] MEDS ORDERED: MIDAZOLAM 2 MG/2 ML INJ ONE (09:17)
[2018-06-07] MEDS ORDERED: CEFAZOLIN 1 GM/D5W RTU 1 GM/50 ML RTUPB IV ONE (11:42)
--- NOTE | 2018-06-07 11:52 | SURGICARE OPERATIVE REPORT E ---
[facility] Operative Report NAME: KEZIA IVERSON AGE: 63Y DATE OF SURGERY: 06/07/2018 ROOM: PREOPERATIVE DIAGNOSIS: GANGRENE OF THE SECOND TOE, LEFT FOOT. POSTOPERATIVE DIAGNOSIS: GANGRENE OF THE SECOND TOE, LEFT FOOT. OPERATION: Amputation of the second toe at the metatarsophalangeal joint on the left foot. SURGEON: VERONICA PARADA DPM PROCEDURE: On 06/07/2018 patient was admitted to [facility] with complaint of infected gangrenous second toe, left foot. Patient taken to the operating room where following the induction of intravenous sedation and regional local anesthesia, the patient's left foot was prepped and draped in the usual sterile manner. Following procedure was performed. Attention was turned to the patient's second toe of the left foot where it was noted to be gangrenous at the distal tip spreading just proximal to the distal phalangeal joint. There was open draining sinus extending proximally into the metatarsophalangeal joint. A Racket type incision was placed around the base of the toe. Utilizing a bone cutter, the proximal phalanx was osteotomized, the toe was disarticulated en toto. The wound was dissected of all necrotic tissue with special attention to the tendinous capsular structures, removing all that could be found as far proximal as possible. The base of the proximal phalanx was then disarticulated from the metatarsophalangeal joint. The area was flushed with copious amounts of sterile saline. Using clean instrumentation, deep tissue samples were obtained to be sent to microbiology for bacterial analysis. Dissection was further carried out as necessary to remove all remaining necrotic tissue. At that time, all bleeding vessels are clamp ligated and Bovie was necessary for hemostasis, which was adequately obtained. The wound was inspected. The articular surface of the second metatarsal head was noted to be free of defects and 100% intact. It was felt at this time that no further bone resection was required. At that time, the antibiotic solution was mixed and the wound was then flushed with copious amounts of sterile antibiotic solution. Any remaining bleeders were clamped and Bovie was necessary for hemostasis. The wound was then packed with Acticoat flex 3 and Surgifoam and the incision was then closed with simple suture of 3-0 Nylon. Only partial primary closure was obtained due to lack of adequate tissue. Sterile dressing was applied consisting of Tai silk, 4 x 4s, ABD pad fluff, Lopez and Kerlix was applied to the wound. The patient tolerated surgery and anesthesia well and was taken to the recovery room for further monitoring by the anesthesia department. DICTATING PHYSICIAN: VERONICA PARADA DPM [id number] PHY#: [id number] ID: [id number] JOB#: [id number] ACCT: [id number] cc:VERONICA PARADA DPM > MTDD
--- NOTE | 2018-06-07 11:58 | RADIOLOGY REPORT (SQ) ---
EXAM DESCRIPTION: FOOT LEFT 2 VIEWS; NO CHG FLUORO COMPLETED DATE/TIME: 06/07/2018 11:33 am REASON FOR STUDY: AMPUTATION OF 2ND TOE ON LEFT FOOT E13.52 OTH DIABETES W DIABETIC PERIPHERAL NEREIDA OPATHY W GANGR COMPARISON: None. FLUOROSCOPY TIME: 4 seconds total fluoro time 1 digital C-arm images saved to PACS. TECHNIQUE: Intra-operative images acquired during surgical procedure to evaluate progress. NUMBER OF IMAGES: 1 digital C-arm image LIMITATIONS: None. FINDINGS: 1 digital C-arm image demonstrates left 2nd toe amputation at the metatarsophalangeal join t. Please see the operative report for further details. IMPRESSION: Intraoperative imaging and fluoro COMMENT: Quality ID [id number]: Final reports for procedures using fluoroscopy that document radiation exp osure indices, or exposure time and number of fluorographic images (if radiation exposure indices are not available) Please consult full operative report of the attending physician for description of the procedure. TECHNICAL DOCUMENTATION: JOB ID: [id number] [employer]- All Rights Reserved Reading location - IP/workstation name: [email or web address]
--- NOTE | 2018-06-07 11:58 | RADIOLOGY REPORT (SQ) ---
EXAM DESCRIPTION: FOOT LEFT 2 VIEWS; NO CHG FLUORO COMPLETED DATE/TIME: 06/07/2018 11:33 am REASON FOR STUDY: AMPUTATION OF 2ND TOE ON LEFT FOOT E13.52 OTH DIABETES W DIABETIC PERIPHERAL NEREIDA OPATHY W GANGR COMPARISON: None. FLUOROSCOPY TIME: 4 seconds total fluoro time 1 digital C-arm images saved to PACS. TECHNIQUE: Intra-operative images acquired during surgical procedure to evaluate progress. NUMBER OF IMAGES: 1 digital C-arm image LIMITATIONS: None. FINDINGS: 1 digital C-arm image demonstrates left 2nd toe amputation at the metatarsophalangeal join t. Please see the operative report for further details. IMPRESSION: Intraoperative imaging and fluoro COMMENT: Quality ID 145: Final reports for procedures using fluoroscopy that document radiation exp osure indices, or exposure time and number of fluorographic images (if radiation exposure indices are not available) Please consult full operative report of the attending physician for description of the procedure. TECHNICAL DOCUMENTATION: JOB ID: [id number] [employer]- All Rights Reserved Reading location - IP/workstation name: [facility]
== END 2018-06-07 12:37 | disposition home or self-care (01) ==
LOC: SC 08:56
PROVIDERS: ATTEND Preventive Medicine Undersea and Hyperbaric Medicine
DX: E13.52 Other specified diabetes mellitus with diabetic peripheral angiopathy with gangrene (principal); I10 Essential (primary) hypertension; K21.9 Gastro-esophageal reflux disease without esophagitis; G47.30 Sleep apnea, unspecified; Z79.84 Long term (current) use of oral hypoglycemic drugs; Z79.4 Long term (current) use of insulin; Z85.3 Personal history of malignant neoplasm of breast; Z79.899 Other long term (current) drug therapy
CPT/HCPCS: 87070; 87205; 82962; 87075; 87077; 87186; 73620; 28820; J2250; J3490 ×5; J0690; J3010; J2405; J2704; 01480

== ENCOUNTER → 2018-07-28 | Outpatient (CLI) | payer MEDICARE | LOC: OD 12:30 | PROVIDERS: ATTEND Preventive Medicine Undersea and Hyperbaric Medicine | DX: E11.621 Type 2 diabetes mellitus with foot ulcer (principal); L97.524 Non-pressure chronic ulcer of other part of left foot with necrosis of bone ==

== ENCOUNTER → 2018-08-04 | Outpatient (CLI) | payer MEDICARE ==
--- NOTE | 2018-08-04 13:10 | RADIOLOGY REPORT (SQ) ---
EXAM DESCRIPTION: MRI LT LOWER EXTREMITY WITHOUT COMPLETED DATE/TIME: 08/04/2018 9:29 am REASON FOR STUDY: L97.524 NON-PRS CHRONIC ULCER OTH PRT LEFT FOOT W NECROSIS OF BONE L97.524 NON-GA S CHRONIC ULCER OTH PRT LEFT FOOT W NECROSIS O COMPARISON: Left foot films 07/28/2018, 06/07/2018 TECHNIQUE: Multiplanar imaging of the left foot to include fat and fluid sensitive sequences. LIMITATIONS: None. FINDINGS: Patient is post left 2nd toe amputation. There is fluid at the surgical site in the foref oot soft tissues surrounding the 2nd metatarsal head. Edema is present throughout the 2nd metatarsal bone extending up to the 2nd tarsometatarsal joint. There is edema in the deep foot soft tissues surrounding the 2nd metatarsal extending throughout the flexor digitorum brevis muscles along the 2nd and 3rd metatarsals. No deep space abscess. There is marrow edema in the medial aspect of the left 3rd metatarsal head and base 3rd metatarsal pr oximal phalanx worrisome for osteomyelitis. Great toe, 4th and 5th metatarsals and toes are intact. Visualized tarsal bones are intact. IMPRESSION: Findings worrisome for osteomyelitis throughout the 2nd metatarsal, with early osteomyel itis involvement of the 3rd metatarsal head and base 3rd toe proximal phalanx. TECHNICAL DOCUMENTATION: JOB ID: [id number] [employer]- All Rights Reserved Reading location - IP/workstation name: [facility]
== END ==
LOC: RAD 09:25
PROVIDERS: ATTEND Preventive Medicine Undersea and Hyperbaric Medicine
DX: L97.524 Non-pressure chronic ulcer of other part of left foot with necrosis of bone (principal)

== ENCOUNTER → 2018-08-25 | Outpatient (CLI) | payer MEDICARE ==
[2018-08-25 15:20] LABS: ABSOLUTE EOSINOPHILS # (AUTO) 1.2 10^3/uL (0.0-0.6); ABSOLUTE LYMPHOCYTES (AUTO) 2.2 10^3/uL (0.5-4.7); ABSOLUTE MONOCYTES (AUTO) 0.7 10^3/uL (0.1-1.4); ABSOLUTE NEUT (AUTO) 4.4 10^3/uL (1.7-8.2); BASOPHILS % (AUTO) 0.5 % (0-2); HEMOGLOBIN 11.1 g/dL (13.5-17.0); LYMPHOCYTES % (AUTO) 25.4 % (13-45); MEAN CORPUSCULAR HEMOGLOBIN 27.7 pg (27.0-33.4); MEAN CORPUSCULAR HGB CONC 32.5 g/dL (32.0-36.0); MEAN CORPUSCULAR VOLUME 85 fl (80-97); MONOCYTES % (AUTO) 7.9 % (3-13); PLATELET COUNT 300 10^3/uL (150-450); RED BLOOD COUNT 3.99 10^6/uL (4.35-5.55); RED CELL DISTRIBUTION WIDTH 16.6 % (11.5-14.0); SEGMENTED NEUTROPHILS % (AUTO) 52.2 % (42-78); TOTAL CELLS COUNTED % (AUTO) 100 %; WHITE BLOOD COUNT 8.5 10^3/uL (4.0-10.5)
--- NOTE | 2018-08-25 15:47 | RADIOLOGY REPORT (SQ) ---
EXAM DESCRIPTION: FOOT LEFT COMPLETE COMPLETED DATE/TIME: 08/25/2018 3:00 pm REASON FOR STUDY: NON-PRS CHRONIC ULCER OTH PRT LEFT FOOT W NECROSIS OF BONE E11.621 TYPE 2 DIABETE S MELLITUS WITH FOOT ULCER L97.522 NON-PRS CHRONIC ULCER OTH PRT LEFT FOOT W FAT LAYER L97.524 NON -PRS CHRONIC ULCER OTH PRT LEFT FOOT W NECROSIS O COMPARISON: None. NUMBER OF VIEWS: Three views. TECHNIQUE: AP, lateral and oblique radiographic images acquired of the left foot. LIMITATIONS: None. FINDINGS: MINERALIZATION: Normal. BONES: There is bony destruction of the distal seconds metatarsal. Likely prior partial amputation o f the seconds digit. Additional destructive changes of the phalanges. JOINTS: No effusions. SOFT TISSUES: No soft tissue swelling. No foreign body. OTHER: No other significant finding. IMPRESSION: Finding suggest osteomyelitis of the seconds ray . There has been prior partial amputat ion. TECHNICAL DOCUMENTATION: JOB ID: [id number] [employer]- All Rights Reserved Reading location - IP/workstation name: [email or web address]
[2018-08-25 15:52] LABS: ALANINE AMINOTRANSFERASE 31 U/L (21-72); ALBUMIN 4.4 g/dL (3.5-5.0); ALKALINE PHOSPHATASE 100 U/L (38-126); ANION GAP 12 (5-19); ASPARTATE AMINO TRANSFERASE 19 U/L (17-59); BILIRUBIN,DIRECT 0.2 mg/dL (0.0-0.4); BILIRUBIN,TOTAL 0.4 mg/dL (0.2-1.3); BLOOD UREA NITROGEN 26 mg/dL (7-20); C-REACTIVE PROTEIN 12.3 mg/L (<10.0); CALCIUM 9.6 mg/dL (8.4-10.2); CARBON DIOXIDE 25 mmol/L (22-30); CHLORIDE 107 mmol/L (98-107); GLUCOSE 115 mg/dL (75-110); POTASSIUM 4.8 mmol/L (3.6-5.0); SODIUM 143.6 mmol/L (137-145); TOTAL PROTEIN 7.4 g/dL (6.3-8.2)
== END ==
LOC: OD 14:04
PROVIDERS: ATTEND Preventive Medicine Undersea and Hyperbaric Medicine
DX: E11.621 Type 2 diabetes mellitus with foot ulcer (principal); L97.522 Non-pressure chronic ulcer of other part of left foot with fat layer exposed; L97.524 Non-pressure chronic ulcer of other part of left foot with necrosis of bone
CPT/HCPCS: 36415; 80053; 83036; 85025; 85652; 86140

== ENCOUNTER → 2018-10-05 | Outpatient (CLI) | payer MEDICARE ==
--- NOTE | 2018-10-05 14:59 | RADIOLOGY REPORT (SQ) ---
EXAM DESCRIPTION: FOOT LEFT COMPLETE COMPLETED DATE/TIME: 10/05/2018 1:16 pm REASON FOR STUDY: NON-PRS CHRONIC ULCER OTH PRT LEFT FOOT W NECROSIS OF BONE E11.621 TYPE 2 DIABETE S MELLITUS WITH FOOT ULCER L97.524 NON-PRS CHRONIC ULCER OTH PRT LEFT FOOT W NECROSIS O L97.511 NON -PRS CHRONIC ULCER OTH PRT R FOOT LIMITED TO BRKD COMPARISON: 06/07/2018, 07/28/2018, 08/25/2018 left foot films NUMBER OF VIEWS: Three views. TECHNIQUE: AP, lateral and oblique radiographic images acquired of the left foot. LIMITATIONS: None. FINDINGS: Post 2nd left toe amputation at the MTP joint. Bony remodeling at the 2nd metatarsal head is present, with increased density of an irregularly-shape d 2nd metatarsal head as compared to films from 08/25/2018. This likely represents healing osteomyeli tis. Remainder of the toes are otherwise unremarkable. Remainder of the foot in the field of view unremar kable aside from a prominent plantar calcaneal spur IMPRESSION: Healing 2nd metatarsal head osteomyelitis with increase in bone density compared to 08/25 foot films TECHNICAL DOCUMENTATION: JOB ID: [id number] [employer]- All Rights Reserved Reading location - IP/workstation name: [email or web address]
== END ==
LOC: WC 13:01
PROVIDERS: ATTEND Preventive Medicine Undersea and Hyperbaric Medicine
DX: E11.621 Type 2 diabetes mellitus with foot ulcer (principal); L97.524 Non-pressure chronic ulcer of other part of left foot with necrosis of bone; L97.511 Non-pressure chronic ulcer of other part of right foot limited to breakdown of skin; M86.8X7 Other osteomyelitis, ankle and foot